=== PATIENT | female | born 1950 | race Caucasian/White ===

== ENCOUNTER → 2016-09-26 | Outpatient (CLI) | payer MEDICARE, BC ==
[2006-01-13 09:05] VITALS: TEMP 97.5
[~2016-09-26] MED LIST: LIPOFLAVONOID1 GEL TP; NEURONTIN100 MG/CAP PO; NEXIUM 40MG40 MG PO; PREMARIN0.45 MG PO; TENORMIN 2525 MG/TAB PO
== END ==
LOC: MC.RAD 08:00
DX: Z12.31 Encounter for screening mammogram for malignant neoplasm of breast (principal)

== ENCOUNTER → 2017-12-31 | Outpatient (CLI) | payer MEDICARE, BC ==
[2006-01-13 09:05] VITALS: TEMP 97.5
== END ==
LOC: MC.RAD 08:40
DX: Z12.31 Encounter for screening mammogram for malignant neoplasm of breast (principal)

== ENCOUNTER → 2019-02-01 | Outpatient (CLI) | payer MEDICARE, BC ==
[2006-01-13 09:05] VITALS: TEMP 97.5
== END ==
LOC: MC.RAD 10:27
DX: Z12.31 Encounter for screening mammogram for malignant neoplasm of breast (principal)

== ENCOUNTER → 2020-02-22 | Outpatient (CLI) | payer MEDICARE, BC ==
[2006-01-13 09:05] VITALS: TEMP 97.5
== END ==
LOC: COL.PUL 13:00
DX: J20.9 Acute bronchitis, unspecified (principal)

== ENCOUNTER → 2021-03-20 | Outpatient (CLI) | payer MEDICARE, BC ==
[2006-01-13 09:05] VITALS: TEMP 97.5
== END ==
LOC: MC.RAD 13:30
DX: Z12.31 Encounter for screening mammogram for malignant neoplasm of breast (principal)